=== PATIENT | female | born 1980 | race Caucasian/White ===

== ENCOUNTER 2023-03-28 19:13 | Emergency (ER) | payer OTHER ==
[~2023-03-28] VITALS: Ht 166.4 cm; Wt 70.2 kg
[2023-03-28 19:38] LABS: BILIRUBIN,URINE NEGATIVE (Neg); CLARITY,URINE CLOUDY (Clear); COLOR,URINE YELLOW (Yellow); GLUCOSE, URINE NEGATIVE (Neg); KETONES,URINE NEGATIVE (Neg); LEUKOCYTE ESTERASE ,URINE LARGE (Neg); NITRITES, URINE NEGATIVE (Neg); OCCULT BLOOD,URINE LARGE (Neg); PROTEIN,URINE TRACE mg/dl (Neg); UROBILINOGEN,URINE 0.2 E.U/dL (0.2-1.0)
--- NOTE | 2023-03-28 19:40 | NUR ---
I agree with RECORDS MANAGEMENT SPECIALIST assessment.
[2023-03-28 19:44] LABS: UA COLLECTION TYPE CLN CATCH MIDSTREAM
[2023-03-28] MEDS ORDERED: phenazopyridine 100mg tablet PO ONE (19:45)
[2023-03-28] MEDS ORDERED: DOXYCYCLINE 100MG CAPSULE PO STA (19:45)
[2023-03-28] MEDS ORDERED: DOXY-11 PO (19:48)
[2023-03-28] MEDS ORDERED: PHEN-824 PO (19:48)
[2023-03-28 19:50] LABS: BACTERIA,URINE 1+ /HPF (Neg); MUCUS STRANDS MANY /LPF (Neg); SQUAMOUS EPITHELIAL CELL,UR MODERATE /LPF (FEW); WBC,URINE TNTC /HPF (0-4)
[2023-03-28 19:53] LABS: RBC,URINE 20-50 /HPF (0-2)
[2023-03-28 20:00] VITALS: BP 107/79; PULSE 78; RESP 17; TEMP 98.4; O2SAT 97
== END 2023-03-28 20:20 | disposition home or self-care (01) ==
LOC: ER 19:15
DX: N39.0 Urinary tract infection, site not specified (principal); R31.9 Hematuria, unspecified; Z88.2 Allergy status to sulfonamides; Z79.2 Long term (current) use of antibiotics; Z79.899 Other long term (current) drug therapy; Z91.018 Allergy to other foods; Z90.710 Acquired absence of both cervix and uterus; Z90.49 Acquired absence of other specified parts of digestive tract
CPT/HCPCS: 81001; 87088; 99283